=== PATIENT | female | born 1995 | race Asian ===

== ENCOUNTER 2017-10-21 15:02 | Emergency (ER) | payer OTHER ==
[2017-10-21] MEDS ORDERED: NS 0.9% 1000 ML* 1,000 ML IV ONE ×2 (18:21→21:46)
[2017-10-21] MEDS ORDERED: Ondansetron ODT TAB* 4 MG PO ONE ×2 (18:22→23:11)
--- NOTE | 2017-10-21 18:24 | ED ---
Progress - Progress Note Progress Note: Provider greeting: Vomiting x 2, syncope x1, dry appearing, no obvious injuries.
[2017-10-21 19:38] LABS: Hematocrit 39 % (35-47); Mean Corpuscular HGB Conc 33 g/dl (31-36); Mean Corpuscular Hemoglobin 29 pg (27-31); Mean Corpuscular Volume 88 fL (80-97); Mean Platelet Volume 8 um3 (7.4-10.4); Platelet Count 128 10^3/ul (150-450); Red Blood Count 4.43 10^6/ul (4.0-5.4); Red Cell Distribution Width 13 % (10.5-15)
[2017-10-21 19:47] LABS: EGFR Non-African American 122.7 (>60)
--- NOTE | 2017-10-21 20:19 | ED ---
Nausea/Vomiting/Diarrhea HPI - HPI Summary HPI Summary: 21 female presents to ED with complaints of nausea, vomiting x2, diarrhea and feeling lightheaded that began this morning. Patient states she passed out earlier today after feeling weak. Patient states this has happened to her in the past. Friend witnessed collapse and denies patient hitting her head as she fell slowly and was only passed out for "a few seconds". Patient has since felt dizzy and lightheaded. Has not drank or ate much today. No abdominal pain, blood in vomit or stool, fever/chills, cough, headache or vision changes. No PMHx. No medication. Does admit to eating at a restaurant [employer] last night around 8pm. Has not vomited or had diarrhea since in ED. No other complaints. Patient states she also just started menstrual cycle yesterday. No recent antibotic use. Just came back from [place] 2 days ago, where she lives. Denies any known infectious disease or flu like illness where patient lives in [place]. Immunizations are UTD. No trauma or injury. No head trauma. - History of Current Complaint Chief Complaint: EDFluSymptoms Stated Complaint: FLU LIKE SYMPTOMS Time Seen by Provider: 10/21/17 19:17 Hx Obtained From: Patient Hx Last Menstrual Period: 10/20/17 ?: No Onset/Duration: Sudden Onset, Lasting Hours Timing: Intermittent Episodes Lasting: Severity Currently: None Pain Intensity: 0 Pain Scale Used: 0-10 Numeric Aggravating Factor(s): Other: - changing positions makes her feel lightheaded Alleviating Factor(s): Nothing Nausea/Vomiting Presence: Nauseated, Vomiting - x2 Vomiting Frequency: Every 1-2 hours Nausea/Vomiting Duration: 0-12 hours Vomiting Characteristics: Retching Diarrhea Presence: Yes Diarrhea Frequency: Every 3-4 hours Diarrhea Duration: 0-12 hours Diarrhea Characteristics: Watery - Allergies/Home Medications Allergies/Adverse Reactions: Allergies Allergy/AdvReac Type Severity Reaction Status Date / Time No Known Allergies Allergy Verified 10/21/17 15:08 PMH/Surg Hx/FS Hx/Imm Hx Endocrine/Hematology History: Denies: Hx Diabetes Cardiovascular History: Denies: Hx Hypertension, Other Cardiovascular Problems/Disorders Respiratory History: Denies: Hx Asthma - Surgical History Surgery Procedure, Year, and Place: n/a - Immunization History Immunizations Up to Date: Yes Infectious Disease History: No Infectious Disease History: Reports: Traveled Outside the [place] in Last 30 Days - [place] - Family History Known Family History: Positive: None - Social History Alcohol Use: None Substance Use Type: Reports: None Smoking Status (MU): Never Smoked Tobacco Review of Systems Constitutional: Negative Cardiovascular: Negative Respiratory: Negative Positive: Vomiting, Diarrhea, Nausea Positive: Weakness - lightheaded, dizzy with position change All Other Systems Reviewed And Are Negative: Yes Physical Exam Triage Information Reviewed: Yes Vital Signs On Initial Exam: Initial Vitals Temp Pulse Resp BP Pulse Ox 98.6 F 100 18 100/55 99 10/21/17 15:04 10/21/17 15:04 10/21/17 15:04 10/21/17 15:04 10/21/17 15:04 Vital Signs Reviewed: Yes Appearance: Positive: Well-Appearing - dry appearing,, No Pain Distress, Well- Nourished Skin: Positive: Warm, Skin Color Reflects Adequate Perfusion, Dry, Pale, Other - normal skin turgor. Negative: Numb, Cyanosis @ Head/Face: Positive: Normal Head/Face Inspection Eyes: Positive: Conjunctiva Clear ENT: Positive: Normal ENT inspection, Hearing grossly normal, Pharynx normal - slightly dried mucous membranes, TMs normal, Uvula midline. Negative: Nasal congestion, Nasal drainage, Tonsillar swelling, Tonsillar exudate Neck: Positive: Supple, Nontender, No Lymphadenopathy Respiratory/Lung Sounds: Positive: Clear to Auscultation, Breath Sounds Present. Negative: Decreased Breath Sounds, Rales, Rhonchi, Wheezes Cardiovascular: Positive: Normal, RRR, Pulses are Symmetrical in both Upper and Lower Extremities. Negative: Murmur, Rub Abdomen Description: Positive: Nontender, Soft Bowel Sounds: Positive: Present Musculoskeletal: Positive: Normal, Strength/ROM Intact Neurological: Positive: Normal, Sensory/Motor Intact, Alert, Oriented to Person Place, Time, NV Bundle Intact Distally, Normal Gait - Shahana Coma Scale Best Eye Response: 4 - Spontaneous Best Motor Response: 6 - Obeys Commands Best Verbal Response: 5 - Oriented Coma Scale Total: 15 Diagnostics - Vital Signs Vital Signs Temp Pulse Resp BP Pulse Ox 10/21/17 18:07 98.6 F 102 14 97/49 98 10/21/17 15:04 98.6 F 100 18 100/55 99 - Laboratory Lab Results: Lab Results 10/21/17 10/21/17 10/21/17 Range/Units 16:49 19:20 19:20 WBC 6.0 (3.5-10.8) 10^3/ul RBC 4.43 (4.0-5.4) 10^6/ul Hgb 13.0 (12.0-16.0) g/dl Hct 39 (35-47) % MCV 88 (80-97) fL MCH 29 (27-31) pg MCHC 33 (31-36) g/dl RDW 13 (10.5-15) % Plt Count 128 L (150-450) 10^3/ul MPV 8 (7.4-10.4) um3 Sodium 135 (133-145) mmol/L Potassium 3.5 (3.5-5.0) mmol/L Chloride 103 (101-111) mmol/L Carbon Dioxide 24 (22-32) mmol/L Anion Gap 8 (2-11) mmol/L BUN 9 (6-24) mg/dL Creatinine 0.62 (0.51-0.95) mg/dL Est GFR ( Amer) 157.8 (>60) Est GFR (Non-Af Amer) 122.7 (>60) BUN/Creatinine Ratio 14.5 (8-20) Glucose 117 H (70-100) mg/dL Calcium 8.9 (8.6-10.3) mg/dL Total Bilirubin 0.80 (0.2-1.0) mg/dL AST 14 (13-39) U/L ALT 9 (7-52) U/L Alkaline Phosphatase 42 (34-104) U/L Total Protein 6.7 (6.4-8.9) g/dL Albumin 4.3 (3.2-5.2) g/dL Globulin 2.4 (2-4) g/dL Albumin/Globulin Ratio 1.8 (1-3) Beta HCG, Quant < 0.60 mIU/mL Influenza A (Rapid) Negative (Negative) Influenza B (Rapid) Negative (Negative) Result Diagrams: 10/21/17 19:20 10/21/17 19:20 Lab Statement: Any lab studies that have been ordered have been reviewed, and results considered in the medical decision making process. Re-Evaluation - Re-Evaluation First Eval Re-Evaluation Time: 19:30 Change: Improved - patients nausea resolved, no vomiting/diarrhea since in ED. awaiting fluids and to check orthostatics, updated on labs patient agrees and understands Second Eval Re-Evaluation Time: 21:46 Change: Improved - patient ate half a sandwhich and drank some water, states she feels better and is no longer dizzy or lightheaded however due to + orthostatics will give another liter of fluids and recheck Third Eval Re-Evaluation Time: 23:13 Change: Improved - feeling better, asymptomatic Naus/Vom/Diarrhea Course/Dx - Course Course Of Treatment: labs obtained unremarkable, negative HCG. given zofran and 2L fluids. had relief. patient is without pain and did not have any episodes of vomiting/diarrhea while in ED. Orthostatics checked and positive. Given another liter of fluids and rechecked still slightly orthostatic however patient asymptomatic. Influenza obtained and negative. no trauma or injury requiring further work up or imaging. No concern for other etiology at this time. appears to be suffering from viral illness/ possible food poisoning from yesterday evening. probable weakness/lightheadedness/near syncope from menstrual cycle, dehydration, and not eating. Patient did feel better after fluids and eating. Normal PE findings. Patient is aware of worsening signs and symptoms to watch out for. Follow up with PCP. return if new or worsening symptoms occur. spoke with Dr Martinez and Dr Day about case who agree and understand plan no further work up required at this time. - Differential Dx/Diagnosis Differential Diagnoses - Female: Gastroenteritis (Viral), Vomiting, Diarrhea, Gastritis, Dehydration, Other - food poisoning, near syncope, weakness, lightheadedness Provider Diagnoses: dehydration, n/v/d, viral gastroenteritis, lightheadedness, orthostatic hypotension Condition At Discharge: Stable - Physician Notification/Consults Discussed Case/Management/Disposition Of Patient With: Dr Martinez and Dr Day agree with plan and d/c Discharge - Discharge Plan Condition: Stable Disposition: HOME Prescriptions: Ondansetron ODT TAB* [Zofran 4 MG Odt TAB*] 4 mg PO Q6H PRN #10 tab.odt PRN Reason: Nausea Patient Education Materials: Dehydration (ED), Near Syncope (ED), Lightheadedness (ED), Hypotension (ED) Referrals: [facility] - Karlo KWOK [Primary Care Provider] - Additional Instructions: Increase fluid intake and get plenty of rest. Recommend drinking gatorade and eating food. Zofran for nausea as needed. Follow up with [facility]. Any new, worsening or persistent symptoms please seek medical attention promptly and return to ED
[2017-10-22 00:23] VITALS: BP 110/57
== END 2017-10-22 00:20 | disposition home or self-care (01) ==
LOC: ED 15:02
DX: I95.1 Orthostatic hypotension (principal); R11.2 Nausea with vomiting, unspecified; R53.1 Weakness; R42 Dizziness and giddiness; E86.0 Dehydration; A08.4 Viral intestinal infection, unspecified
CPT/HCPCS: 36415; 80053; 84702; 85027; 87502; 99282; A9270-GY